=== PATIENT | female | born 1950 | race Caucasian/White ===

== ENCOUNTER 2017-06-21 13:30 | Emergency (ER) | payer MEDICARE ==
[~2017-06-21] VITALS: Ht 162.6 cm; Wt 82.0 kg
[2017-06-21 13:33] VITALS: BP 186/87; PULSE 76; RESP 18; TEMP 97.6; O2SAT 95
[2017-06-21] MEDS ORDERED: LOSA100T PO (14:07)
[2017-06-21] MEDS ORDERED: ASPI81CH6 CHEW (14:07)
[2017-06-21] MEDS ORDERED: ALBUAER3 INH (14:07)
--- NOTE | 2017-06-21 14:44 | PD ---
HPI Chief Complaint: Musculoskeletal Complaint Time Seen by Provider: 14:06 Travel History International Travel<30 days: No Contact w/Intl Traveler<30days: No Traveled to known affect area: No History of Present Illness HPI 67-year-old female with history of rectal cancer presents to the emergency room for evaluation of left lateral ankle pain for the past week. Patient states pain started upon waking. She denies any trauma or injury. States she gets leg cramps every night and thinks she may have a muscle spasm from that. She recently had surgery for her rectal cancer. She has not been taking anything for symptoms but has been applying warm, cool compresses in an Gio wrap without relief in symptoms. Reports occasional radiation into the calf. PFSH Past Medical History Cancer: Yes (rectal, colon, ovarian, cervical) Chemotherapy: Yes COPD: Yes Diminished Hearing: No Hypertension: Yes Respiratory: Yes (COPD) Influenza Vaccination: No ?: Not Past Surgical History Abdominal Surgery: Yes (Colon resec) Gynecologic Surgery: Yes (hyster, ikmi ovaries, Labia resection) Hysterectomy: Yes Other Surgery: Yes (rectal surg) Social History Alcohol Use: Yes (occ) Tobacco Use: Yes (1/2ppd) Substance Use: No Allergies-Medications (Allergen,Severity, Reaction): Coded Allergies: No Known Allergies (Unverified , 06/21/17) Reported Meds & Prescriptions Reported Meds & Active Scripts Active Reported Proair Hfa 8.5 GM Inh (Albuterol Sulfate) 90 Mcg/Act Aer 2 Puff INH Q4-6H PRN 108 mcg/actuation Aspirin Low Dose (Aspirin) 81 Mg Chew 81 Mg CHEW DAILY Losartan (Losartan Potassium) 100 Mg Tab 100 Mg PO DAILY Review of Systems Except as stated in HPI: all other systems reviewed are Neg Physical Exam Narrative GENERAL: Well-nourished, well-developed patient. SKIN: Focused skin assessment warm/dry. HEAD: Normocephalic. EYES: No scleral icterus. No injection or drainage. NECK: Supple, trachea midline. No JVD or lymphadenopathy. CARDIOVASCULAR: Regular rate and rhythm without murmurs, gallops, or rubs. RESPIRATORY: Breath sounds equal bilaterally. No accessory muscle use. GASTROINTESTINAL: Abdomen soft, non-tender, nondistended. MUSCULOSKELETAL: No cyanosis, or edema. BACK: Nontender without obvious deformity. No CVA tenderness. Data Data Last Documented VS Vital Signs Date Time Temp Pulse Resp B/P (MAP) Pulse Ox O2 Delivery O2 Flow Rate FiO2 06/21/17 13:33 97.6 76 18 186/87 (120) 95 Orders Orders Ankle, Complete ([id number]) (06/21/17 ) Us Leg Venous Doppler (06/21/17 ) Ed Discharge Order (06/21/17 16:17) MDM Medical Decision Making Medical Screen Exam Complete: Yes Emergency Medical Condition: Yes Medical Record Reviewed: Yes Differential Diagnosis Strain, sprain, contusion, fracture, muscle spasm, effusion, arthritis, gout, Narrative Course 67-year-old female presents to the emergency room for evaluation of left ankle pain and swelling for the past week. Patient denies any trauma or injury. States she woke up with the pain. She has remote history of rectal cancer status post radiation for which she is receiving subsequent surgeries for repair. Patient denies history of blood clots but states she may have had a TIA several months ago. She had an outpatient workup that was negative. Physical exam reveals mild edema and tenderness to palpation of the left lateral malleolus. Left lower extremity is neurovascularly intact with 2+ dorsalis pedis pulse. There is no significant erythema, edema, or ecchymosis. X-ray is negative. Ultrasound is negative. Patient was offered ankle stirrup but declined. She was told to continue taking ibuprofen or Tylenol for pain and follow-up with an orthopedist. She understands plan. Diagnosis Primary Impression: Left ankle pain Qualified Codes: M25.572 - Pain in left ankle and joints of left foot Referrals: Primary Care Physician Additional Instructions: Rest and drink plenty of fluids. Keep it wrapped to reduce swelling. Take ibuprofen with food as directed, as needed for pain. Apply ice to the affected area for 20 minutes at a time, as needed for pain and swelling. Follow-up with a primary care physician. Return to the emergency room for worsening symptoms. Disposition: 01 DISCHARGE HOME Condition: Stable Bhargavi Guevara Jun 21, 2017 14:44
--- NOTE | 2017-06-21 15:47 | RADRPT ---
EXAM DATE/TIME: 06/21/2017 15:17 [facility] COMPARISON: No previous studies available for comparison. INDICATIONS : Left ankle pain, no known injury MEDICAL HISTORY : None. SURGICAL HISTORY : None. ENCOUNTER: Initial ACUITY: 2 weeks PAIN SCORE: 8/10 LOCATION: Left ankle FINDINGS: Three view exam was performed of the left ankle. The bony structures are in normal alignment. No ev idence of fracture, dislocation, or soft tissue swelling. The ankle mortise is intact. No radiopaqu e foreign bodies are seen. Bony mineralization is normal. CONCLUSION: 1. No acute findings. Ishmael Plaza MD on June 21, 2017 at 15:38 Board Certified Radiologist. This report was verified electronically.
--- NOTE | 2017-06-21 16:11 | RADRPT ---
EXAM DATE/TIME: 06/21/2017 15:38 [facility] COMPARISON: No previous studies available for comparison. INDICATIONS : Left ankle pain for 1 week. MEDICAL HISTORY : Chronic obstructive pulmonary disease. Hypertension. Carcinoma, rectal, colon, ovarian and cervic al. Chemotherapy. SURGICAL HISTORY : Hysterectomy. Colon resection. Labia resection. ENCOUNTER: Initial ACUITY: 1 week PAIN SCORE: 0/10 LOCATION: Left leg. TECHNIQUE: Venous ultrasound of the leg was performed from the inguinal ligament to the proximal calf. Real-deysi e, color Doppler and spectral tracing, compression and augmentation techniques were used. FINDINGS: There is normal compressibility of the deep venous system from the inguinal region to the proximal ca lf. No echogenic clot is seen in the lumen of the common femoral, femoral, popliteal, and posterior tibial veins. There is a normal response of the venous system to proximal and distal augmentation an d respiration. CONCLUSION: Normal examination. Ishmael Plaza MD on June 21, 2017 at 16:08 Board Certified Radiologist. This report was verified electronically.
== END 2017-06-21 16:38 | disposition home or self-care (01) ==
LOC: PHEFT 13:30
DX: M25.572 Pain in left ankle and joints of left foot (principal); M79.605 Pain in left leg; J44.9 Chronic obstructive pulmonary disease, unspecified; I10 Essential (primary) hypertension; F17.200 Nicotine dependence, unspecified, uncomplicated; Z85.048 Personal history of other malignant neoplasm of rectum, rectosigmoid junction, and anus; Z79.82 Long term (current) use of aspirin; Z79.899 Other long term (current) drug therapy
CPT/HCPCS: 73610; 93971